=== PATIENT | male | born 1940 | race Caucasian/White ===

== ENCOUNTER 2017-11-06 13:13 | Emergency (ER) | payer MEDICARE, OTHER ==
--- NOTE | 2017-11-06 13:44 | EDM.PDOC ---
ED HPI GENERAL MEDICAL PROBLEM - General Stated Complaint: [id number] BLOOD PRESSURE Time Seen by Provider: 11/06/17 13:39 Source of Information: Reports: Patient History Limitations: Reports: No Limitations - History of Present Illness INITIAL COMMENTS - FREE TEXT/NARRATIVE: This 77 yo male patient reports to the ED due to getting very high blood pressure readings on his home machine. The patient reports he took his blood pressure about 12 times today, but his pressure has gotten higher. The patient reports that he attempted to get into the clinic, but waited for over an hour without being seen. Onset: Today Duration: Constant Location: Reports: Other Quality: Reports: Other Severity: Moderate Improves with: Reports: None Worsens with: Reports: None Associated Symptoms: Reports: No Other Symptoms - Related Data Allergies Allergy/AdvReac Type Severity Reaction Status Date / Time No Known Allergies Allergy Verified 11/06/17 13:19 Home Meds: Home Meds Chlorthalidone 25 mg PO DAILY 01/23/14 [History] Losartan [Cozaar] 100 mg PO DAILY 01/23/14 [History] Metoprolol Succinate [Toprol XL] 50 mg PO DAILY 01/23/14 [History] Nitroglycerin [Nitrostat] 0.4 mg SL ASDIRECTED PRN 01/23/14 [History] Potassium Chloride [Klor-Con M20] 20 meq PO BID 01/23/14 [History] amLODIPine [Norvasc] 5 mg PO BID 01/23/14 [History] Albuterol [Proventil] 0.5 ml INH Q4HR PRN 11/06/17 [History] Clopidogrel [Plavix] 75 mg PO DAILY 11/06/17 [History] Fluticasone/Salmeterol [Advair 250-50 Diskus] 1 puff INH BID 11/06/17 [History] Goserelin [Zoladex] 10.8 mg SUBCUT .[id number] 11/06/17 [History] Isosorbide Mononitrate [Imdur] 60 mg PO DAILY 11/06/17 [History] ED ROS GENERAL - Review of Systems Review Of Systems: ROS reveals no pertinent complaints other than HPI. ED EXAM, GENERAL - Physical Exam Exam: See Below Exam Limited By: No Limitations General Appearance: Alert, WD/WN, Anxious, Moderate Distress Eye Exam: Bilateral Eye: EOMI, Normal Inspection, PERRL Ears: Normal External Exam, Normal Canal, Hearing Grossly Normal, Normal TMs Nose: Normal Inspection Throat/Mouth: Normal Inspection, Normal Lips, Normal Teeth Head: Atraumatic, Normocephalic Neck: Normal Inspection, Full Range of Motion Respiratory/Chest: No Respiratory Distress, Lungs Clear, Normal Breath Sounds Cardiovascular: Normal Peripheral Pulses, Regular Rate, Rhythm, No Edema, No Gallop, No JVD, No Murmur, No Rub GI/Abdominal: Normal Bowel Sounds, Soft, Non-Tender, No Organomegaly, No Distention, No Abnormal Bruit, No Mass (Male) Exam: Deferred Rectal (Males) Exam: Deferred Back Exam: Normal Inspection Extremities: Normal Inspection, Normal Range of Motion, Non-Tender, Normal Capillary Refill, No Pedal Edema Neurological: Alert, Oriented, CN II-XII Intact, Normal Cognition, Normal Gait, Normal Reflexes, No Motor/Sensory Deficits Psychiatric: Normal Affect, Normal Mood Skin Exam: Warm, Dry, Intact, Normal Color, No Rash Lymphatic: No Adenopathy Course - Vital Signs Last Recorded V/S: Last Vital Signs Temp 36.4 C 11/06/17 13:37 Pulse 66 11/06/17 13:37 Resp 18 11/06/17 13:37 BP 152/106 H 11/06/17 13:37 Pulse Ox 99 11/06/17 13:37 Departure - Departure Time of Disposition: 13:40 Disposition: Home, Self-Care 01 Condition: Good Clinical Impression: High blood pressure Qualifiers: Hypertension type: unspecified Qualified Code(s): I10 - Essential (primary) hypertension - Discharge Information *PRESCRIPTION DRUG MONITORING PROGRAM REVIEWED*: Not Applicable *COPY OF PRESCRIPTION DRUG MONITORING REPORT IN PATIENT ZACH: Not Applicable Instructions: Hypertension Forms: ED Department Discharge Care Plan Goals: The patient was advised of the examination and blood pressure results. The patient was encouraged to follow-up with his primary care facility for continued evaluation and management. If the patient has any additional symptoms or concerns, the patient should visit his primary care facility or return to the emergency department.
== END 2017-11-06 13:54 | disposition home or self-care (01) ==
LOC: DL.ED 13:13
DX: I10 Essential (primary) hypertension (principal); Z79.899 Other long term (current) drug therapy
CPT/HCPCS: 99283

== ENCOUNTER 2017-11-13 12:51 | Emergency (ER) | payer MEDICARE, OTHER ==
[2017-11-13 13:55] LABS: ANION GAP 13.5; CHLORIDE,CL 105 mmol/L (101-111); SODIUM,NA 140 mmol/L (135-145)
--- NOTE | 2017-11-13 13:58 | CR ---
Clinical history: 77-year-old male chest pain (history prostate cancer). Interpretation: Apparent old ununited mid diaphyseal fracture right clavicle. External monitoring coordinator leads. Normal cardiac silhouette and ectatic left-sided aorta. No cephalization vascular flow, alveolar edema or dependent pleural effusion. No lung mass, hilar lymphadenopathy or focal lobar pneumonia. No atelectasis/collapse. No pneumothorax or free subdiaphragmatic air. CONCLUSION: No acute cardiopulmonary abnormality.
--- NOTE | 2017-11-13 14:54 | EDM.PDOC ---
ED HPI GENERAL MEDICAL PROBLEM - General Chief Complaint: Cardiovascular Problem Stated Complaint: [id number] HIGH BLOOD PRESSURE Time Seen by Provider: 11/13/17 14:30 Source of Information: Reports: Patient History Limitations: Reports: No Limitations - History of Present Illness INITIAL COMMENTS - FREE TEXT/NARRATIVE: This 77 yo male patient reports to the ED with elevated blood pressures (taken at home). The patient reports his blood pressures at home were in the 200's over 100's. The patient reports that he stopped at the ambulance service prior to coming to the ED. The patient reports his blood pressure at the ambulance garage was in the 160's/90's. The patient was seen with similar symptoms about 1 week ago. The patient has not had a follow-up with his primary care facility at this time. Onset: Today Duration: Constant Location: Reports: Other Quality: Reports: Other Severity: Moderate Improves with: Reports: None Worsens with: Reports: None - Related Data Allergies Allergy/AdvReac Type Severity Reaction Status Date / Time No Known Allergies Allergy Verified 11/13/17 13:54 Home Meds: Home Meds Chlorthalidone 12.5 mg PO DAILY 01/23/14 [History] Losartan [Cozaar] 100 mg PO DAILY 01/23/14 [History] Metoprolol Succinate [Toprol XL] 50 mg PO DAILY 01/23/14 [History] Nitroglycerin [Nitrostat] 0.4 mg SL .Q5MIN PRN 01/23/14 [History] Potassium Chloride [Klor-Con M20] 20 meq PO BID 01/23/14 [History] amLODIPine [Norvasc] 5 mg PO BID 01/23/14 [History] Albuterol [Proventil] 0.5 ml INH Q4HR PRN 11/06/17 [History] Clopidogrel [Plavix] 75 mg PO DAILY 11/06/17 [History] Fluticasone/Salmeterol [Advair 250-50 Diskus] 1 puff INH BID 11/06/17 [History] Goserelin [Zoladex] 10.8 mg SUBCUT .[id number] 11/06/17 [History] Isosorbide Mononitrate [Imdur] 60 mg PO DAILY 11/06/17 [History] Past Medical History Cardiovascular History: Reports: Hypertension, Stents Respiratory History: Reports: COPD - Infectious Disease History Infectious Disease History: Reports: Chicken Pox, Measles, Mumps - Past Surgical History HEENT Surgical History: Reports: Adenoidectomy, Tonsillectomy Musculoskeletal Surgical History: Reports: Other (See Below) Other Musculoskeletal Surgeries/Procedures:: fx collarbone Social & Family History - Family History Family Medical History: Noncontributory - Caffeine Use Caffeine Use: Reports: Coffee ED ROS GENERAL - Review of Systems Review Of Systems: ROS reveals no pertinent complaints other than HPI. ED EXAM, GENERAL - Physical Exam Exam: See Below Exam Limited By: No Limitations General Appearance: Alert, WD/WN, Mild Distress Eye Exam: Bilateral Eye: EOMI, Normal Inspection, PERRL Ears: Normal External Exam, Normal Canal, Hearing Grossly Normal, Normal TMs Nose: Normal Inspection, Normal Mucosa, No Blood Throat/Mouth: Normal Inspection, Normal Lips, Normal Teeth, Normal Gums, Normal Oropharynx, Normal Voice, No Airway Compromise Head: Atraumatic, Normocephalic Neck: Normal Inspection, Supple, Non-Tender, Full Range of Motion Respiratory/Chest: No Respiratory Distress, Lungs Clear, Normal Breath Sounds, No Accessory Muscle Use, Chest Non-Tender Cardiovascular: Normal Peripheral Pulses, Regular Rate, Rhythm, No Edema, No Gallop, No JVD, No Murmur, No Rub GI/Abdominal: Normal Bowel Sounds, Soft, Non-Tender, No Organomegaly, No Distention, No Abnormal Bruit, No Mass (Male) Exam: Deferred Rectal (Males) Exam: Deferred Back Exam: Normal Inspection, Full Range of Motion, NT Extremities: Normal Inspection, Normal Range of Motion, Non-Tender, Normal Capillary Refill, No Pedal Edema Neurological: Alert, Oriented, CN II-XII Intact, Normal Cognition, Normal Gait, Normal Reflexes, No Motor/Sensory Deficits Psychiatric: Anxious Skin Exam: Warm, Dry, Intact, Normal Color, No Rash Lymphatic: No Adenopathy Course - Vital Signs Last Recorded V/S: Last Vital Signs Temp 36.4 C 11/13/17 12:55 Pulse 74 11/13/17 12:55 Resp 14 11/13/17 12:55 BP 160/90 H 11/13/17 12:55 Pulse Ox 98 11/13/17 12:55 - Orders/Labs/Meds Orders: Active Orders 24 hr Category Date Time Status EKG Documentation Completion [RC] STAT Care 11/13/17 13:16 Active Labs: Laboratory Tests 11/13/17 11/13/17 Range/Units 13:24 13:24 WBC 7.1 (5.0-10.0) 10^3/uL RBC 4.85 (4.6-6.2) 10^6/uL Hgb 14.4 (14.0-18.0) g/dL Hct 40.0 (40.0-54.0) % MCV 82.5 (80-100) fL MCH 29.7 (27.0-34.0) pg MCHC 36.0 H (33.0-35.0) g/dL Plt Count 76 L (150-450) 10^3/uL Neut % (Auto) 68.5 (42.2-75.2) % Lymph % (Auto) 22.6 (20.5-50.1) % Mcdonald % (Auto) 7.5 (2-8) % Eos % (Auto) 1.1 (1.0-3.0) % Baso % (Auto) 0.3 (0.0-1.0) % Sodium 140 (135-145) mmol/L Potassium 3.5 L (3.6-5.0) mmol/L Chloride 105 (101-111) mmol/L Carbon Dioxide 25.0 (21.0-31.0) mmol/L Anion Gap 13.5 BUN 20 H (7-18) mg/dL Creatinine 1.0 (0.6-1.3) mg/dL Est Cr Clr Drug Dosing TNP Estimated GFR (MDRD) > 60 BUN/Creatinine Ratio 20.00 Glucose 132 H (74-105) mg/dL Calcium 9.1 (8.4-10.2) mg/dl Total Bilirubin 0.9 (0.2-1.0) mg/dL AST 34 (10-42) IU/L ALT 45 (10-60) IU/L Alkaline Phosphatase 50 (42-121) IU/L Troponin I < 0.02 (0.00-0.02) ng/ml Total Protein 6.4 L (6.7-8.2) g/dl Albumin 4.4 (3.2-5.5) g/dl Globulin 2.0 Albumin/Globulin Ratio 2.20 Departure - Departure Time of Disposition: 14:51 Disposition: Home, Self-Care 01 Condition: Fair Clinical Impression: Hypertension Qualifiers: Hypertension type: unspecified Qualified Code(s): I10 - Essential (primary) hypertension Instructions: Hypertension, [id number] Forms: ED Department Discharge Care Plan Goals: The patient was advised of the examination, lab, EKG and x-ray results during the visit. The patient was encouraged to continue to take his medications as prescribed. The patient should follow-up with his primary care facility for continued evaluation and management. If the patient has any additional symptoms or concerns, the patient should visit his primary care facility or return to the emergency department. - My Orders Last 24 Hours: My Active Orders 11/13/17 13:16 EKG Documentation Completion [RC] STAT - Assessment/Plan Last 24 Hours: My Active Orders 11/13/17 13:16 EKG Documentation Completion [RC] STAT
== END 2017-11-13 15:15 | disposition home or self-care (01) ==
LOC: DL.ED 12:51
DX: I10 Essential (primary) hypertension (principal); J44.9 Chronic obstructive pulmonary disease, unspecified; Z79.899 Other long term (current) drug therapy
CPT/HCPCS: 36415; 71045; 80053; 84484; 85025; 93005; 93010; 99284; 99285

== ENCOUNTER 2018-05-22 11:41 | Emergency (ER) | payer MEDICARE, OTHER ==
[2018-05-22] MEDS: Sodium Chloride 0.9% 10 ML Syringe FLUSH PRN (12:16)
[2018-05-22] MEDS: Lactated Ringers 1,000 ML IV ONE ×2 (12:23→14:49)
[2018-05-22 12:39] LABS: ANION GAP 13.3; CHLORIDE,CL 103 mmol/L (101-111); SODIUM,NA 133 mmol/L (135-145)
--- NOTE | 2018-05-22 13:30 | EDM.PDOC ---
ED HPI GENERAL MEDICAL PROBLEM - General Chief Complaint: Gastrointestinal Problem Stated Complaint: MARCIN STORY Time Seen by Provider: 05/22/18 11:55 Source of Information: Reports: Patient History Limitations: Reports: No Limitations - History of Present Illness INITIAL COMMENTS - FREE TEXT/NARRATIVE: The patient comes emergency department today with complaints of diarrhea. He reports since May [address] scan of his abdomen evaluating concerns for cancer he has had diarrhea ever since. He has not been evaluated for this. The diarrhea keeps getting worse. Over the past couple of days he's developed some suprapubic periumbilical and medial right lower quadrant pain. He has had a subjective fever and chills. He has also vomited a couple times over the past couple of days. He feels that he is dehydrated. He has not been on any antibiotics currently or previously to the development of his diarrhea. No one else has been ill and he has not been exposed to anyone sick. He has not been traveling outside of his normal areas of travel. He does not work with any livestock or on a farm. Generalized Pain Score (Numeric/FACES): 6 - Related Data Allergies Allergy/AdvReac Type Severity Reaction Status Date / Time No Known Allergies Allergy Verified 05/22/18 11:56 Home Meds: Home Meds Chlorthalidone 25 mg PO DAILY 01/23/14 [History] Losartan [Cozaar] 100 mg PO DAILY 01/23/14 [History] Metoprolol Succinate [Toprol XL] 50 mg PO DAILY 01/23/14 [History] Nitroglycerin [Nitrostat] 0.4 mg SL .Q5MIN PRN 01/23/14 [History] Potassium Chloride [Klor-Con M20] 20 meq PO BID 01/23/14 [History] amLODIPine [Norvasc] 5 mg PO BID 01/23/14 [History] Albuterol [Proventil] 0.5 ml INH Q4HR PRN 11/06/17 [History] Clopidogrel [Plavix] 75 mg PO DAILY 11/06/17 [History] Fluticasone/Salmeterol [Advair 250-50 Diskus] 1 puff INH BID 11/06/17 [History] Goserelin [Zoladex] 10.8 mg SUBCUT .[id number] 11/06/17 [History] Aspirin [Adult Low Dose Aspirin EC] 81 mg PO DAILY 05/22/18 [History] Past Medical History Cardiovascular History: Reports: Hypertension, Stents Respiratory History: Reports: COPD Gastrointestinal History: Reports: Other (See Below) (Diverticulosis) - Infectious Disease History Infectious Disease History: Reports: Chicken Pox, Measles, Mumps - Past Surgical History HEENT Surgical History: Reports: Adenoidectomy, Tonsillectomy Musculoskeletal Surgical History: Reports: Other (See Below) Other Musculoskeletal Surgeries/Procedures:: fx collarbone Social & Family History - Family History Family Medical History: Noncontributory - Caffeine Use Caffeine Use: Reports: Coffee ED ROS GENERAL - Review of Systems Review Of Systems: ROS reveals no pertinent complaints other than HPI. ED EXAM, GI/ABD - Physical Exam Exam: See Below Exam Limited By: No Limitations General Appearance: Alert, WD/WN, No Apparent Distress Ears: Normal External Exam, Normal TMs Nose: Normal Inspection Throat/Mouth: Normal Lips, Normal Teeth, Normal Oropharynx. No: Normal Inspection (Oral mucosa is quite dry) Head: Atraumatic, Normocephalic Neck: Normal Inspection, Supple, Non-Tender Respiratory/Chest: No Respiratory Distress, Lungs Clear, Normal Breath Sounds, No Accessory Muscle Use Cardiovascular: Normal Peripheral Pulses, Regular Rate, Rhythm GI/Abdominal Exam: Normal Bowel Sounds (Rounded obese abdomen), Soft, Non- Tender (He does have some very mild tenderness to palpation in the medial right lower quadrant suprapubic region. No guarding or rebound tenderness.) Back Exam: Normal Inspection, Full Range of Motion Extremities: Normal Inspection, Normal Range of Motion, Non-Tender, Normal Capillary Refill Neurological: Alert, Oriented, Normal Cognition, Normal Gait, No Motor/Sensory Deficits Psychiatric: Normal Affect, Normal Mood Skin Exam: Warm, Dry, Intact, Normal Color, No Rash Lymphatic: No Adenopathy Course - Vital Signs Last Recorded V/S: Last Vital Signs Temp 37.2 C 05/22/18 11:50 Pulse 79 05/22/18 11:50 Resp 16 05/22/18 11:50 BP 145/98 H 05/22/18 11:50 Pulse Ox 100 05/22/18 11:50 - Orders/Labs/Meds Orders: Active Orders 24 hr Category Date Time Status Peripheral IV Care [RC] . DIRECTED Care 05/22/18 12:15 Active C DIFFICILE TOXIN BY PCR [MREF] Stat Lab 05/22/18 12:08 Received CULTURE BLOOD [BC] Stat Lab 05/22/18 12:07 Received CULTURE STOOL [RM] Stat Lab 05/22/18 12:08 Received OVA & PARASITES BY IMMUNOASSAY [MREF] Stat Lab 05/22/18 12:08 Received SHIGA TOXIN 1 & 2 [MREF] Stat Lab 05/22/18 12:08 Received Peripheral IV Insertion Adult [OM.PC] Stat Oth 05/22/18 12:14 Ordered Labs: Laboratory Tests 05/22/18 05/22/18 05/22/18 Range/Units 12:07 12:07 12:07 WBC 12.3 H (5.0-10.0) 10^3/uL RBC 5.49 (4.6-6.2) 10^6/uL Hgb 16.1 (14.0-18.0) g/dL Hct 44.4 (40.0-54.0) % MCV 80.9 (80-100) fL MCH 29.3 (27.0-34.0) pg MCHC 36.3 H (33.0-35.0) g/dL Plt Count 134 L (150-450) 10^3/uL Neut % (Auto) 76.1 H (42.2-75.2) % Lymph % (Auto) 14.0 L (20.5-50.1) % Cuming % (Auto) 9.4 H (2-8) % Eos % (Auto) 0.3 L (1.0-3.0) % Baso % (Auto) 0.2 (0.0-1.0) % Add Manual Diff Yes Neutrophils % (Manual) 74 (42-75) % Band Neutrophils % 3 % Lymphocytes % (Manual) 18 L (20-50) % Monocytes % (Manual) 5 (2-8) % Sodium 133 L (135-145) mmol/L Potassium 3.3 L (3.6-5.0) mmol/L Chloride 103 (101-111) mmol/L Carbon Dioxide 20.0 L (21.0-31.0) mmol/L Anion Gap 13.3 BUN 32 H (7-18) mg/dL Creatinine 1.1 (0.6-1.3) mg/dL Est Cr Clr Drug Dosing 53.55 mL/min Estimated GFR (MDRD) > 60 BUN/Creatinine Ratio 29.09 Glucose 134 H (74-105) mg/dL Lactic Acid 2.0 (0.5-2.2) mmol/L Calcium 8.6 (8.4-10.2) mg/dl Magnesium (1.8-2.5) mg/dL Total Bilirubin 1.5 H (0.2-1.0) mg/dL AST 24 (10-42) IU/L ALT 35 (10-60) IU/L Alkaline Phosphatase 44 (42-121) IU/L C-Reactive Protein (0.0-1.3) mg/dL Total Protein 6.6 L (6.7-8.2) g/dl Albumin 4.2 (3.2-5.5) g/dl Globulin 2.4 Albumin/Globulin Ratio 1.75 Urine Color (YELLOW) Urine Appearance (CLEAR) Urine pH (5.0-9.0) Ur Specific [place] (1.005-1.030) Urine Protein (NEGATIVE) Urine Glucose (UA) (NEGATIVE) Urine Ketones (NEGATIVE) Urine Occult Blood (NEGATIVE) Urine Nitrite (NEGATIVE) Urine Bilirubin (NEGATIVE) Urine Urobilinogen (0.2-1.0) mg/dL Ur Leukocyte Esterase (NEGATIVE) Urine RBC /HPF Urine WBC (0-5/HPF) /HPF Ur Epithelial Cells /HPF Urine Bacteria (0-FEW/HPF) /HPF Urine Mucus /LPF 05/22/18 05/22/18 05/22/18 Range/Units 12:07 12:07 15:36 WBC (5.0-10.0) 10^3/uL RBC (4.6-6.2) 10^6/uL Hgb (14.0-18.0) g/dL Hct (40.0-54.0) % MCV (80-100) fL MCH (27.0-34.0) pg MCHC (33.0-35.0) g/dL Plt Count (150-450) 10^3/uL Neut % (Auto) (42.2-75.2) % Lymph % (Auto) (20.5-50.1) % Cuming % (Auto) (2-8) % Eos % (Auto) (1.0-3.0) % Baso % (Auto) (0.0-1.0) % Add Manual Diff Neutrophils % (Manual) (42-75) % Band Neutrophils % % Lymphocytes % (Manual) (20-50) % Monocytes % (Manual) (2-8) % Sodium (135-145) mmol/L Potassium (3.6-5.0) mmol/L Chloride (101-111) mmol/L Carbon Dioxide (21.0-31.0) mmol/L Anion Gap BUN (7-18) mg/dL Creatinine (0.6-1.3) mg/dL Est Cr Clr Drug Dosing mL/min Estimated GFR (MDRD) BUN/Creatinine Ratio Glucose (74-105) mg/dL Lactic Acid (0.5-2.2) mmol/L Calcium (8.4-10.2) mg/dl Magnesium 2.1 (1.8-2.5) mg/dL Total Bilirubin (0.2-1.0) mg/dL AST (10-42) IU/L ALT (10-60) IU/L Alkaline Phosphatase (42-121) IU/L C-Reactive Protein 0.6 (0.0-1.3) mg/dL Total Protein (6.7-8.2) g/dl Albumin (3.2-5.5) g/dl Globulin Albumin/Globulin Ratio Urine Color Yellow (YELLOW) Urine Appearance Clear (CLEAR) Urine pH 5.0 (5.0-9.0) Ur Specific [place] <= 1.005 (1.005-1.030) Urine Protein Negative (NEGATIVE) Urine Glucose (UA) Negative (NEGATIVE) Urine Ketones Negative (NEGATIVE) Urine Occult Blood Negative (NEGATIVE) Urine Nitrite Negative (NEGATIVE) Urine Bilirubin Negative (NEGATIVE) Urine Urobilinogen 0.2 (0.2-1.0) mg/dL Ur Leukocyte Esterase Negative (NEGATIVE) Urine RBC Not seen /HPF Urine WBC 0-5 (0-5/HPF) /HPF Ur Epithelial Cells Rare /HPF Urine Bacteria Rare (0-FEW/HPF) /HPF Urine Mucus Rare /LPF Meds: Medications Discontinued Medications Generic Name Dose Route Start Last Admin Trade Name Freq PRN Reason Stop Dose Admin Ciprofloxacin 500 mg 05/22/18 14:41 05/22/18 14:49 Ciprofloxacin Hcl PO 05/22/18 14:42 500 mg ONETIME ONE Administration Lactated Ringer's 1,000 mls @ 1,000 mls/hr 05/22/18 12:15 05/22/18 12:23 Ringers, Lactated IV 05/22/18 13:14 1,000 mls/hr .BOLUS ONE Administration Ciprofloxacin/Dextrose 400 mg/ 200 mls @ 200 mls/hr 05/22/18 14:34 05/22/18 15:46 Premix IV 05/22/18 15:33 Not Given ONETIME ONE Lactated Ringer's 1,000 mls @ 400 mls/hr 05/22/18 14:40 05/22/18 14:49 Ringers, Lactated IV 05/22/18 17:09 400 mls/hr .BOLUS ONE Administration Iopamidol 100 ml 05/22/18 13:48 05/22/18 13:51 Isovue-300 (61%) IVPUSH 05/22/18 13:49 97 ml ONETIME ONE Administration Potassium Chloride 20 meq 05/22/18 12:55 05/22/18 13:56 Potassium Chloride Solution PO 05/22/18 12:56 20 meq NOW STA Administration Sodium Chloride 10 ml 05/22/18 12:14 05/22/18 12:16 Saline Flush FLUSH 10 ml ASDIRECTED PRN Administration Keep Vein Open - Radiology Interpretation Free Text/Narrative:: CT abdomen and pelvis radiology no definite evidence of acute abdominal or pelvic pathology. Diverticulosis without any evidence of diverticulitis. No appendicitis. - Re-Assessments/Exams Free Text/Narrative Re-Assessment/Exam: 05/22/18 13:29 IV of LR 500 bolus and 200 mils an hour. Stool culture obtained and sent. Patient did have multiple bouts of diarrhea while in the emergency department. 05/22/18 15:22 Stool cultures are pending. Although with the rather extended period of diarrhea we will start him on Cipro. He was continued IV fluid hydration in the emergency department until he was able to urinate. He did not have any nausea or vomiting while in the emergency department. I relayed the rather normal findings of his CT abdomen and pelvis. He does have diverticulosis without any evidence of diverticulitis. We will give him some potassium now and some supplementation over the next couple of days. Cipro for the next 5 days. We will follow up with cultures for him following his stool culture results. Keep his appointment for the scan of his abdomen as guided by his oncologist on Sunday. He is comfortable with this plan his questions are answered. Departure - Departure Time of Disposition: 15:13 Disposition: Home, Self-Care 01 Clinical Impression: Diarrhea, Abdominal pain, Dehydration, Hypokalemia Diverticulosis Qualifiers: Diverticulosis site: diverticulosis of large intestine Diverticulosis bleeding : diverticulosis without bleeding Qualified Code(s): K57.30 - Diverticulosis of large intestine without perforation or abscess without bleeding - Discharge Information Instructions: Dehydration, Adult, [id number], Abdominal Pain, Adult, Easy-to- Read, Rehydration, Adult, Diarrhea, Adult, [id number] Forms: ED Department Discharge Additional Instructions: Increase fluids over the next couple of days especially Gatorade and/or Powerade. Make sure and eat a banana a day. No dairy products until 48 hours of resolution of diarrhea and abdominal pain. Cipro 1 tablet twice daily for the next 5 days. RX given to the patient. K-Dur potassium tablets once daily for the next 5 days. Start today. RX given to the patient. Recheck potassium in the clinic on sunday. Return to the ED if new or worsening symptoms. Follow up with primary care on sunday for recheck. - My Orders Last 24 Hours: My Active Orders 05/22/18 12:07 CULTURE BLOOD [BC] Stat 05/22/18 12:08 C DIFFICILE TOXIN BY PCR [MREF] Stat CULTURE STOOL [RM] Stat OVA & PARASITES BY IMMUNOASSAY [MREF] Stat SHIGA TOXIN 1 & 2 [MREF] Stat 05/22/18 12:14 Peripheral IV Insertion Adult [OM.PC] Stat 05/22/18 12:15 Peripheral IV Care [RC] . DIRECTED - Assessment/Plan Last 24 Hours: My Active Orders 05/22/18 12:07 CULTURE BLOOD [BC] Stat 05/22/18 12:08 C DIFFICILE TOXIN BY PCR [MREF] Stat CULTURE STOOL [RM] Stat OVA & PARASITES BY IMMUNOASSAY [MREF] Stat SHIGA TOXIN 1 & 2 [MREF] Stat 05/22/18 12:14 Peripheral IV Insertion Adult [OM.PC] Stat 05/22/18 12:15 Peripheral IV Care [RC] . DIRECTED Assessment:: Diarrhea for almost 2 weeks Dehydration hypokalemia Abd pain known origin. Diverticulosis without evidence of diverticulitis. Plan: Increase fluids over the next couple of days especially Gatorade and/or Powerade. Make sure and eat a banana a day. No dairy products until 48 hours of resolution of diarrhea and abdominal pain. Cipro 1 tablet twice daily for the next 5 days. RX given to the patient. K-Dur potassium tablets once daily for the next 5 days. Start today. RX given to the patient. Recheck potassium in the clinic on sunday. Return to the ED if new or worsening symptoms. Follow up with primary care on sunday for recheck.
[2018-05-22] MEDS: Iopamidol 612 MG/ML 100 ML Bottle IVPUSH ONE (13:51)
[2018-05-22] MEDS: Potassium Chloride 10% 20 MEQ/15 ML Soln 15 ML UD Cup PO STA (13:56)
[2018-05-22] MEDS: Ciprofloxacin 500 MG Tab PO ONE (14:49)
[2018-05-22] MEDS: Ciprofloxacin in D5W 400 MG in Premix Bag 1 BAG IV ONE ×2 (15:46)
== END 2018-05-22 16:04 | disposition home or self-care (01) ==
LOC: DL.ED 11:41
DX: K57.30 Diverticulosis of large intestine without perforation or abscess without bleeding (principal); E87.6 Hypokalemia; E86.0 Dehydration; I10 Essential (primary) hypertension; J44.9 Chronic obstructive pulmonary disease, unspecified; Z79.899 Other long term (current) drug therapy
CPT/HCPCS: 36415; 74177; 80053; 81001; 83605; 83735; 85025; 86140; 87040; 87045; 87328; 87329; 87493; 87899; 96360; 96361; 99284; A9270; J7120; Q9967; 87046

== ENCOUNTER → 2018-06-27 | Outpatient (CLI) | payer MEDICARE, OTHER ==
[2018-06-27 09:29] LABS: ANION GAP 15.5; CHLORIDE,CL 103 mmol/L (101-111); SODIUM,NA 139 mmol/L (135-145)
== END ==
LOC: DL.LAB 08:42
PROVIDERS: ATTEND Internal Medicine Hematology & Oncology
DX: C61 Malignant neoplasm of prostate (principal); D69.6 Thrombocytopenia, unspecified
CPT/HCPCS: 36415; 80053; 82728; 83540; 83550; 85025

== ENCOUNTER 2018-08-13 08:08 | Emergency (ER) | payer MEDICARE, OTHER ==
--- NOTE | 2018-08-13 08:51 | CR ---
Clinical history: 77-year-old male with cough and shortness of breath. Interpretation: Satisfactory interval healing mid right clavicular fracture demonstrated on 05 November 2017. Normal cardiac silhouette without cephalization of vascular flow, alveolar edema or dependent pleural effusion. No new lung mass, hilar lymphadenopathy or focal lobar pneumonia. No atelectasis/collapse. 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 No pneumothorax.. CONCLUSION: No acute new cardiopulmonary abnormality identified in the interval since 13 November 2017.
--- NOTE | 2018-08-13 08:59 | EDM.PDOC ---
ED HPI GENERAL MEDICAL PROBLEM - General Chief Complaint: General Stated Complaint: SICK Time Seen by Provider: 08/13/18 08:40 Source of Information: Reports: Patient, RN, RN Notes Reviewed History Limitations: Reports: No Limitations - History of Present Illness INITIAL COMMENTS - FREE TEXT/NARRATIVE: Pt to ER with c/o cough for the past week, coughing up clear sputum. 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 Patient admits to fever and chills last night. Denies N/V/D. States he was unable to see his PCP and knows he needs meds or he will get much worse. Admits to SOB at times, denies chest pain. 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) - Related Data Allergies Allergy/AdvReac Type Severity Reaction Status Date / Time No Known Allergies Allergy Verified 08/13/18 08:22 Home Meds: Home Meds Chlorthalidone 25 mg PO DAILY 01/23/14 [History] Losartan [Cozaar] 100 mg PO DAILY 01/23/14 [History] Metoprolol Succinate [Toprol XL] 50 mg PO DAILY 01/23/14 [History] Nitroglycerin [Nitrostat] 0.4 mg SL .Q5MIN PRN 01/23/14 [History] Potassium Chloride [Klor-Con M20] 20 meq PO BID 01/23/14 [History] amLODIPine [Norvasc] 5 mg PO BID 01/23/14 [History] Albuterol [Proventil] 0.5 ml INH Q4HR PRN 11/06/17 [History] Clopidogrel [Plavix] 75 mg PO DAILY 11/06/17 [History] Fluticasone/Salmeterol [Advair 250-50 Diskus] 1 puff INH BID 11/06/17 [History] Goserelin [Zoladex] 10.8 mg SUBCUT .[id number] 11/06/17 [History] Aspirin [Adult Low Dose Aspirin EC] 81 mg PO DAILY 05/22/18 [History] Past Medical History Cardiovascular History: Reports: Hypertension, Stents Respiratory History: Reports: COPD Gastrointestinal History: Reports: Other (See Below) (Diverticulosis) - Infectious Disease History Infectious Disease History: Reports: Chicken Pox, Measles, Mumps - Past Surgical History HEENT Surgical History: Reports: Adenoidectomy, Tonsillectomy Musculoskeletal Surgical History: Reports: Other (See Below) Other Musculoskeletal Surgeries/Procedures:: fx collarbone Social & Family History - Family History Family Medical History: Noncontributory - Tobacco Use Smoking Status *Q: Never Smoker Second Hand Smoke Exposure: No - Caffeine Use Caffeine Use: Reports: Soda - Recreational Drug Use Recreational Drug Use: No ED ROS GENERAL - Review of Systems Review Of Systems: ROS reveals no pertinent complaints other than HPI. ED EXAM, GENERAL - Physical Exam Exam: See Below Exam Limited By: No Limitations General Appearance: Alert, WD/WN, No Apparent Distress Eye Exam: Bilateral Eye: EOMI, Normal Inspection Ears: Normal External Exam, Hearing Grossly Normal Nose: Normal Inspection Throat/Mouth: Normal Inspection, Normal Voice, No Airway Compromise Head: Atraumatic, Normocephalic Neck: Normal Inspection, Supple, Non-Tender, Full Range of Motion Respiratory/Chest: No Respiratory Distress, No Accessory Muscle Use, Chest Non- Tender, Decreased Breath Sounds, Crackles (bases bilaterally) Cardiovascular: Normal Peripheral Pulses, Regular Rate, Rhythm, No Edema, No Gallop, No JVD, No Murmur, No Rub Peripheral Pulses: 2+: Radial (L), Radial (R) GI/Abdominal: Normal Bowel Sounds, Soft, Non-Tender, No Organomegaly, No Distention, No Abnormal Bruit, No Mass, Pelvis Stable (Male) Exam: Deferred Rectal (Males) Exam: Deferred Back Exam: Normal Inspection, Full Range of Motion, NT Extremities: Normal Inspection, Normal Range of Motion, Non-Tender, Normal Capillary Refill, No Pedal Edema Neurological: Alert, Oriented, CN II-XII Intact, Normal Cognition, Normal Gait, Normal Reflexes, No Motor/Sensory Deficits Psychiatric: Normal Affect, Normal Mood Skin Exam: Warm, Dry, Intact, Normal Color, No Rash Lymphatic: No Adenopathy Course - Vital Signs Last Recorded V/S: Last Vital Signs Temp 97.4 F 08/13/18 08:27 Pulse 78 08/13/18 08:27 Resp 16 08/13/18 08:27 BP 151/76 H 08/13/18 08:27 Pulse Ox 98 08/13/18 08:27 - Radiology Interpretation Free Text/Narrative:: Chest xray: No acuted new cardiopulmonary abnormality identified in the interval since 13 Nov 2017. See rad report Departure - Departure Time of Disposition: 08:56 Disposition: Home, Self-Care 01 Condition: Fair Clinical Impression: Cough, Bronchitis - Discharge Information *PRESCRIPTION DRUG MONITORING PROGRAM REVIEWED*: No *COPY OF PRESCRIPTION DRUG MONITORING REPORT IN PATIENT ZACH: No Instructions: Cough, Adult, Vpki-[id number], Upper Respiratory Infection, Adult, [id number] Forms: ED Department Discharge Additional Instructions: May use over the counter Robitussin as directed for cough RX: Prednisone, Azithromycin Drink plenty of water Follow up with your primary care facility
== END 2018-08-13 09:08 | disposition home or self-care (01) ==
LOC: DL.ED 08:08
DX: J40 Bronchitis, not specified as acute or chronic (principal); J44.9 Chronic obstructive pulmonary disease, unspecified; I10 Essential (primary) hypertension; Z79.01 Long term (current) use of anticoagulants; Z79.82 Long term (current) use of aspirin; Z79.899 Other long term (current) drug therapy
CPT/HCPCS: 71046; 99283-25

== ENCOUNTER 2019-05-01 08:56 | Emergency (ER) | payer MEDICARE, OTHER ==
[2019-05-01] MEDS ORDERED: Sodium Chloride 0.9% 10 ML Syringe FLUSH PRN (10:47)
--- NOTE | 2019-05-01 10:56 | EDM.PDOC ---
<Cruzito Li - Last Filed: 05/01/19 11:51> ED HPI GENERAL MEDICAL PROBLEM - General Chief Complaint: General Stated Complaint: SICK FOR 5 DAYS Time Seen by Provider: 05/01/19 10:51 Source of Information: Reports: Patient, RN, RN Notes Reviewed History Limitations: Reports: No Limitations - History of Present Illness INITIAL COMMENTS - FREE TEXT/NARRATIVE: 78 y.o M presents with generalized weakness, fever/chills, productive cough x 5 days. Patient reports that he has been using albuterol nebs @ home, last one this AM 0800 with some relief. Patient reports feeling weaker, no appetite, feels "like crap". Patient reports that he feels dehydrated, last urine this morning and denies problem. Tolerating fluids, denies nausea and vomiting. He felt like he could vomit at home once but tried and couldn't get anything to come up. He reports having one small bowel movement this morning that was hard but nothing in the last 5 days. 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) - Related Data Allergies Allergy/AdvReac Type Severity Reaction Status Date / Time No Known Allergies Allergy Verified 05/01/19 09:15 Home Meds: Home Meds Chlorthalidone 25 mg PO DAILY 01/23/14 [History] Losartan [Cozaar] 100 mg PO DAILY 01/23/14 [History] Metoprolol Succinate [Toprol XL] 50 mg PO BEDTIME 01/23/14 [History] Nitroglycerin [Nitrostat] 0.4 mg SL .Q5MIN PRN 01/23/14 [History] Potassium Chloride [Klor-Con M20] 20 meq PO DAILY 01/23/14 [History] amLODIPine [Norvasc] 5 mg PO BID 01/23/14 [History] Albuterol [Proventil] 0.5 ml INH Q4HR PRN 11/06/17 [History] Fluticasone/Salmeterol [Advair 250-50 Diskus] 1 puff INH BID 11/06/17 [History] Goserelin [Zoladex] 10.8 mg SUBCUT .[id number] 11/06/17 [History] Aspirin [Adult Low Dose Aspirin EC] 162 mg PO DAILY 05/22/18 [History] Past Medical History Cardiovascular History: Reports: Hypertension, Stents Respiratory History: Reports: COPD Gastrointestinal History: Reports: Other (See Below) Endocrine/Metabolic History: Reports: Obesity/BMI 30+ - Infectious Disease History Infectious Disease History: Reports: Chicken Pox, Measles, Mumps - Past Surgical History HEENT Surgical History: Reports: Adenoidectomy, Tonsillectomy GI Surgical History: Reports: Appendectomy, Cholecystectomy Musculoskeletal Surgical History: Reports: Other (See Below) Other Musculoskeletal Surgeries/Procedures:: fx collarbone Social & Family History - Family History Family Medical History: Noncontributory - Tobacco Use Smoking Status *Q: Never Smoker Second Hand Smoke Exposure: No - Caffeine Use Caffeine Use: Reports: None - Recreational Drug Use Recreational Drug Use: No ED ROS GENERAL - Review of Systems Review Of Systems: See Below Constitutional: Reports: Fever, Weakness, Fatigue, Decreased Appetite HEENT: Reports: No Symptoms Respiratory: Reports: Shortness of Breath, Cough, Sputum. Denies: Wheezing Cardiovascular: Reports: No Symptoms Endocrine: Reports: No Symptoms GI/Abdominal: Reports: Constipation, Decreased Appetite, Nausea. Denies: Diarrhea : Reports: No Symptoms Musculoskeletal: Reports: Other (generalized weakness) Skin: Reports: No Symptoms Neurological: Reports: Headache, Weakness. Denies: Confusion, Dizziness, Numbness, Syncope, Tingling, Difficulty Walking Psychiatric: Reports: No Symptoms Hematologic/Lymphatic: Reports: No Symptoms Immunologic: Reports: No Symptoms ED EXAM, GENERAL - Physical Exam Exam: See Below Exam Limited By: No Limitations General Appearance: Alert, WD/WN, Mild Distress Respiratory/Chest: No Respiratory Distress, Lungs Clear, Normal Breath Sounds, No Accessory Muscle Use, Chest Non-Tender Cardiovascular: Normal Peripheral Pulses, Regular Rate, Rhythm, No Edema, No Gallop, No JVD, No Murmur, No Rub GI/Abdominal: Soft, Non-Tender, No Distention, Abnormal Bowel Sounds (hypoactive ). No: Guarding, Rebound, Tender (Male) Exam: Deferred Rectal (Males) Exam: Deferred Extremities: Normal Inspection, Normal Range of Motion, Non-Tender, Normal Capillary Refill, No Pedal Edema Neurological: Alert, Oriented, CN II-XII Intact, Normal Cognition, Normal Gait, Normal Reflexes, No Motor/Sensory Deficits Psychiatric: Normal Affect, Normal Mood Skin Exam: Warm, Dry, Intact, Normal Color, No Rash Course - Vital Signs Last Recorded V/S: Last Vital Signs Temp 98.3 F 05/01/19 08:58 Pulse 85 05/01/19 08:58 Resp 20 05/01/19 08:58 BP 140/93 H 05/01/19 08:58 Pulse Ox 98 05/01/19 08:58 - Orders/Labs/Meds Orders: Active Orders 24 hr Category Date Time Status Peripheral IV Care [RC] . DIRECTED Care 05/01/19 10:48 Active CULTURE STREP A CONFIRMATION [] Stat Lab 05/01/19 09:20 Results STREP SCRN A RAPID W CULT CONF [] Stat Lab 05/01/19 09:20 Results Peripheral IV Insertion Adult [OM.PC] Stat Oth 05/01/19 10:48 Ordered Labs: Laboratory Tests 05/01/19 05/01/19 Range/Units 10:55 10:55 WBC 5.7 (5.0-10.0) 10^3/uL RBC 5.15 (4.6-6.2) 10^6/uL Hgb 15.0 (14.0-18.0) g/dL Hct 40.9 (40.0-54.0) % MCV 79.4 L (80-100) fL MCH 29.1 (27.0-34.0) pg MCHC 36.7 H (33.0-35.0) g/dL Plt Count 84 L (150-450) 10^3/uL Neut % (Auto) 70.8 (42.2-75.2) % Lymph % (Auto) 17.4 L (20.5-50.1) % Vilas % (Auto) 11.2 H (2-8) % Eos % (Auto) 0.4 L (1.0-3.0) % Baso % (Auto) 0.2 (0.0-1.0) % Sodium 135 (135-145) mmol/L Potassium 3.4 L (3.6-5.0) mmol/L Chloride 95 L (101-111) mmol/L Carbon Dioxide 26.0 (21.0-31.0) mmol/L Anion Gap 17.4 BUN 22 H (7-18) mg/dL Creatinine 1.3 (0.6-1.3) mg/dL Est Cr Clr Drug Dosing 44.58 mL/min Estimated GFR (MDRD) 53 BUN/Creatinine Ratio 16.92 Glucose 119 H (74-105) mg/dL Calcium 9.1 (8.4-10.2) mg/dl Total Bilirubin 1.2 H (0.2-1.0) mg/dL AST 31 (10-42) IU/L ALT 35 (10-60) IU/L Alkaline Phosphatase 43 (42-121) IU/L Total Protein 7.0 (6.7-8.2) g/dl Albumin 4.6 (3.2-5.5) g/dl Globulin 2.4 Albumin/Globulin Ratio 1.92 Strep screen: Negative Influenza A: Positive Influenza B: Negative Meds: Medications Discontinued Medications Generic Name Dose Route Start Last Admin Trade Name Freq PRN Reason Stop Dose Admin Sodium Chloride 1,000 mls @ 150 mls/hr 05/01/19 11:37 05/01/19 12:07 Normal Saline IV 05/01/19 18:16 Not Given .BOLUS ONE Sodium Chloride 10 ml 05/01/19 10:47 05/01/19 11:29 Saline Flush FLUSH 10 ml ASDIRECTED PRN Administration Keep Vein Open Departure - Departure Time of Disposition: 12:00 Disposition: Home, Self-Care 01 Condition: Fair Clinical Impression: Influenza A Constipation Qualifiers: Constipation type: unspecified constipation type Qualified Code(s): K59.00 - Constipation, unspecified - Discharge Information *PRESCRIPTION DRUG MONITORING PROGRAM REVIEWED*: Not Applicable *COPY OF PRESCRIPTION DRUG MONITORING REPORT IN PATIENT ZACH: Not Applicable Instructions: Influenza, Adult, Constipation, Adult, [id number] Referrals: PCP,Unobtain [Primary Care Provider] - Forms: ED Department Discharge Additional Instructions: Symptoms of influenza may take up to 10-14 days to resolve. Continue to drink plenty of fluids to stay hydrated and to help with constipation. Take over the counter magnesium citrate or miralax to help with constipation as well. If symptoms worsen or do not resolve, follow-up with primary care provider in clinic. Sepsis Event Note - Evaluation Sepsis Screening Result: No Definite Risk - Focused Exam Vital Signs: Vital Signs Temp Pulse Resp BP Pulse Ox 05/01/19 08:58 98.3 F 85 20 140/93 H 98 Date Exam was Performed: 05/01/19 Time Exam was Performed: 11:51 - My Orders Last 24 Hours: My Active Orders 05/01/19 09:20 CULTURE STREP A CONFIRMATION [RM] Stat STREP SCRN A RAPID W CULT CONF [RM] Stat 05/01/19 10:48 Peripheral IV Care [RC] . DIRECTED Peripheral IV Insertion Adult [OM.PC] Stat - Assessment/Plan Last 24 Hours: My Active Orders 05/01/19 09:20 CULTURE STREP A CONFIRMATION [RM] Stat STREP SCRN A RAPID W CULT CONF [RM] Stat 05/01/19 10:48 Peripheral IV Care [RC] . DIRECTED Peripheral IV Insertion Adult [OM.PC] Stat <Yohana Stephen - Last Filed: 05/01/19 19:20> Course - Re-Assessments/Exams Free Text/Narrative Re-Assessment/Exam: 05/01/19 19:20 I personally performed or re-performed the physical examination and medical decision making. I have verified all student documentation or findings, including history, physical exam and/or medical decision making. Sepsis Event Note - Focused Exam Date Exam was Performed: 05/01/19 Time Exam was Performed: 19:19
[2019-05-01 11:23] LABS: ANION GAP 17.4
[2019-05-01] MEDS ORDERED: Sodium Chloride 0.9% 1,000 ML IV ONE (11:37)
--- NOTE | 2019-05-01 12:26 | CR ---
EXAMINATION: Chest 2V SEX: Male AGE: 78 years CLINICAL HISTORY: 78-year-old male complaining of shortness of breath. ?pneumonia INTERPRETATION: 1. Osteopenia and hypertrophic arthritic changes of the dorsal spine. Ectasia thoracic aorta. Old healed fracture right clavicle. 2. Normal cardiac silhouette without pulmonary vascular congestion, cephalization of vascular flow, alveolar edema or dependent pleural fluid accumulation. 3. No new lung mass or focal lobar pneumonia compared directly back to July exam. 4. Chronic mild bronchitic pattern. No atelectasis/collapse. No pneumothorax. CONCLUSION: No acute new cardiopulmonary abnormality.
== END 2019-05-01 12:12 | disposition home or self-care (01) ==
LOC: DL.ED 08:56
DX: J10.1 Influenza due to other identified influenza virus with other respiratory manifestations (principal); K59.00 Constipation, unspecified; I10 Essential (primary) hypertension; J44.9 Chronic obstructive pulmonary disease, unspecified; Z79.51 Long term (current) use of inhaled steroids; Z79.82 Long term (current) use of aspirin; Z79.899 Other long term (current) drug therapy
CPT/HCPCS: 36415; 71046; 74019; 80053; 85025; 87081; 87430; 87804; 99282; 99285-25

== ENCOUNTER → 2020-05-06 | Day surgery (SDC) | payer MEDICARE, OTHER ==
[~2020-05-06] MED LIST: Lidocaine 1% with EPINEPHrine 1:100,000 20 ML MDV INJECT ONE; Lidocaine 1% with EPINEPHrine 1:100,000 20 ML MDV ONE; Midazolam 1 MG/ML 2 ML SDV IV ONE; Ondansetron 4 MG/2 ML SDV IV ONE; Propofol 200 MG/20 ML SDV IV ONE; fentaNYL 100 MCG/2 ML SDV IV ONE
[2020-05-06] MEDS: Lactated Ringers 1,000 ML IV SCH ×2 (07:52→08:08)
--- NOTE | 2020-05-06 13:56 | OR ---
DATE: 05/06/2020 PRIMARY CARE PHYSICIAN: LIVIER Gilbert PREOPERATIVE DIAGNOSIS: Rectal tenderness and mass. POSTOPERATIVE DIAGNOSIS: Rectal tenderness and mass with internal hemorrhoids and external skin excoriations. PROCEDURE: Exam under anesthesia. ANESTHESIA: MAC. SPECIMEN: None. OPERATIVE FINDINGS: The patient has small to moderate size internal hemorrhoids and he has multiple skin excoriations both anteriorly and posterior in the midline. I think this mostly represents just chronic perineal irritation. It could represent his overzealous effect to clean this area that he has roughed up the skin. I do not find any evidence of fistulas or masses. He has normal rectal tone. Internal hemorrhoids and external skin excoriations. INDICATION FOR PROCEDURE: This 79-year-old male complains of rectal pain and "passages of stones." RECOMMENDATION: I do not have any surgical therapy for him. His hemorrhoids do not even need banding. They are not bleeding and there is no significant mass. I do not know what the stones are that he complains about that he passes other than would represent just small hard balls of stool. I do not have any surgical options. DESCRIPTION OF PROCEDURE: After adequate preparation, examination of the external skin shows skin erosions in the midline, both posteriorly and anteriorly to the anal opening. He does not have any masses or subcutaneous lesions that I can palpate externally. By digital examination, this is also normal. He has good rectal tone. Examination with the anoscope shows internal hemorrhoids. I cannot feel any kind of mass that he complains about that he can feel. The procedure was ended. [facility] /[id number]
--- NOTE | 2020-05-11 21:28 | EKG ---
05/06/2020 - NADYA VALENTIN - TIME: 8:44 a.m. sinus rhythm at 56. [facility] /[id number]
== END ==
LOC: DL.SDS 07:04
PROVIDERS: ATTEND Surgery
DX: K64.8 Other hemorrhoids (principal); K62.89 Other specified diseases of anus and rectum; G89.29 Other chronic pain; R21 Rash and other nonspecific skin eruption; D75.1 Secondary polycythemia; R06.02 Shortness of breath; R07.9 Chest pain, unspecified; Z01.812 Encounter for preprocedural laboratory examination; Z20.822 Contact with and (suspected) exposure to COVID-19; Z95.818 Presence of other cardiac implants and grafts; Z79.899 Other long term (current) drug therapy; Z98.890 Other specified postprocedural states
CPT/HCPCS: 00902; 46600; 93005; J2250; J2405; J2704; J3010; J7120; U0002

== ENCOUNTER 2020-05-07 08:16 | Day surgery (SDC) | payer MEDICARE, OTHER ==
[~2020-05-07 08:16] MED LIST changes: +Benzocaine/Docusate Sodium 20-283 MG/5 ML Enema RECTAL ONE; +Dextrose 5%-0.45% NaCl 1,000 ML IV SCH; -Lidocaine 1% with EPINEPHrine 1:100,000 20 ML MDV INJECT ONE; -Lidocaine 1% with EPINEPHrine 1:100,000 20 ML MDV ONE; -Midazolam 1 MG/ML 2 ML SDV IV ONE; +Midazolam 1 MG/ML 2 ML SDV ONE; -Ondansetron 4 MG/2 ML SDV IV ONE; -Propofol 200 MG/20 ML SDV IV ONE; -fentaNYL 100 MCG/2 ML SDV IV ONE; +fentaNYL 100 MCG/2 ML SDV ONE
[2020-05-07] MEDS ORDERED: fentaNYL 100 MCG/2 ML SDV IV ONE ×2 (08:17→09:28)
[2020-05-07] MEDS ORDERED: Midazolam 1 MG/ML 2 ML SDV IV ONE ×3 (08:17→09:27)
--- NOTE | 2020-05-07 12:04 | OR ---
DATE: 05/07/2020 PREOPERATIVE DIAGNOSIS: Rectal pain and complaints of passing rectal stones. POSTOPERATIVE DIAGNOSIS: Rectal pain and complaints of passing rectal stones. PROCEDURE: Total colonoscopy. ANESTHESIA: Conscious sedation with IV Versed and fentanyl. SPECIMEN: None. OPERATIVE FINDINGS: Significant sigmoid diverticulosis. He has few small internal hemorrhoids of no consequence, and there is no evidence of fistula or fissure. Rectal examination is normal. Of note, he does have a lot of small little stool balls that I think are secondary to the diverticulosis and that is what he is feeling when he passes stool. PROCEDURE IN DETAIL: After adequate preparation, a colonoscope was inserted into the rectum. I especially was looking for anal fissure or fistula, none were found. He does have some small internal hemorrhoids, but these should be of no consequence. Retained within the rectum and most of the scattered throughout the colon are little hard stool ball and there are some that are pictured within the diverticula that were present. No other abnormalities were noted. The scope was passed all the way to the cecum and confirmation of the cecum was made by visualization of the ileocecal valve. The bowel prep was adequate. On withdrawal of the scope, no other abnormalities were noted. [facility] /[id number]
== END 2020-05-07 10:40 | disposition home or self-care (01) ==
LOC: DL.SDS 08:16
PROVIDERS: ATTEND Surgery
DX: K64.8 Other hemorrhoids (principal); K57.30 Diverticulosis of large intestine without perforation or abscess without bleeding; K56.41 Fecal impaction; G89.29 Other chronic pain; Z79.899 Other long term (current) drug therapy
CPT/HCPCS: 45378; J2250; J3010; J7042

== ENCOUNTER 2020-06-28 08:02 | Emergency (ER) | payer MEDICARE, OTHER ==
--- NOTE | 2020-06-28 08:17 | EDM.PDOC ---
ED HPI GENERAL MEDICAL PROBLEM - General Chief Complaint: Respiratory Problem Stated Complaint: COUGH SNEEZING CHEST HURTS Time Seen by Provider: 06/28/20 08:10 Source of Information: Reports: Patient, Old Records, RN, RN Notes Reviewed History Limitations: Reports: No Limitations - History of Present Illness INITIAL COMMENTS - FREE TEXT/NARRATIVE: Pt presents to ER from home by POV with c/o cough, sneezing, and congestion x5 days. He is worried about COVID, but has no confirmed exposures. Denies fever. Admits to chills and headache. Duration: Day(s): (5), Constant Location: Reports: Chest Quality: Reports: Ache Severity: Moderate Improves with: Reports: None Worsens with: Reports: Other (Coughing) Associated Symptoms: Reports: No Other Symptoms - Related Data Allergies Allergy/AdvReac Type Severity Reaction Status Date / Time No Known Allergies Allergy Verified 06/28/20 08:15 Home Meds: Home Meds Chlorthalidone 25 mg PO DAILY 01/23/14 [History] Losartan [Cozaar] 100 mg PO DAILY 01/23/14 [History] Metoprolol Succinate [Toprol XL] 50 mg PO BEDTIME 01/23/14 [History] Nitroglycerin [Nitrostat] 0.4 mg SL .Q5MIN PRN 01/23/14 [History] Potassium Chloride [Klor-Con M20] 20 meq PO BID 01/23/14 [History] amLODIPine [Norvasc] 5 mg PO DAILY 01/23/14 [History] Albuterol [Proventil] 0.5 ml INH Q4HR PRN 11/06/17 [History] Fluticasone Propion/Salmeterol [Advair 250-50 Diskus] 1 puff INH BID 11/06/17 [History] Goserelin [Zoladex] 10.8 mg SUBCUT .[id number] 11/06/17 [History] Isosorbide Mononitrate [Isosorbide Mononitrate ER] 60 mg PO BID 05/03/20 [History] Aspirin 162 mg PO DAILY 05/05/20 [History] Past Medical History HEENT History: Reports: Macular Degeneration Cardiovascular History: Reports: Hypertension, Stents Respiratory History: Reports: COPD Gastrointestinal History: Reports: None Genitourinary History: Reports: None Musculoskeletal History: Reports: None Neurological History: Reports: None Psychiatric History: Reports: None Endocrine/Metabolic History: Reports: Obesity/BMI 30+ Hematologic History: Reports: Hemochromatosis, Other (See Below) Other Hematologic History: makes too much blood Immunologic History: Reports: None Oncologic (Cancer) History: Reports: Prostate, Other (See Below) Other Oncologic History: some kind of skin cancer Dermatologic History: Reports: None - Infectious Disease History Infectious Disease History: Reports: Chicken Pox, Measles, Mumps - Past Surgical History Head Surgeries/Procedures: Reports: None HEENT Surgical History: Reports: Adenoidectomy, Tonsillectomy Cardiovascular Surgical History: Reports: Coronary Artery Stent Respiratory Surgical History: Reports: None GI Surgical History: Reports: Appendectomy, Cholecystectomy, Colonoscopy, Other (See Below) Other GI Surgeries/Procedures: exam of rectum under anesthesia Male Surgical History: Reports: None Endocrine Surgical History: Reports: None Neurological Surgical History: Reports: None Musculoskeletal Surgical History: Reports: Other (See Below) Other Musculoskeletal Surgeries/Procedures:: fx collarbone Dermatological Surgical History: Reports: None Social & Family History - Family History Family Medical History: No Pertinent Family History - Caffeine Use Caffeine Use: Reports: None - Living Situation & Occupation Living situation: Reports: , with Spouse 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 ED EXAM, GENERAL - Physical Exam Exam: See Below Exam Limited By: No Limitations General Appearance: Alert, WD/WN, No Apparent Distress Eye Exam: Bilateral Eye: Normal Inspection Ears: Normal External Exam, Normal Canal, Hearing Grossly Normal, Normal TMs Nose: No Blood, Other (Moderate congestion) Throat/Mouth: Normal Inspection, Normal Lips, Normal Teeth, Normal Gums, Normal Oropharynx, Normal Voice, No Airway Compromise Head: Atraumatic, Normocephalic Neck: Normal Inspection, Supple, Non-Tender, Full Range of Motion Respiratory/Chest: No Respiratory Distress, No Accessory Muscle Use, Chest Non- Tender, Wheezing, Other (Occ. dry cough). No: Crackles, Rales, Rhonchi Cardiovascular: Regular Rate, Rhythm, No Edema Extremities: Normal Inspection, No Pedal Edema Neurological: Alert, Oriented, CN II-XII Intact, Normal Cognition, No Motor/Sensory Deficits Psychiatric: Normal Affect, Normal Mood Skin Exam: Warm, Dry, Intact, Normal Color, No Rash Course - Vital Signs Last Recorded V/S: Last Vital Signs Temp 97.6 F 06/28/20 08:16 Pulse 66 06/28/20 08:16 Resp 18 06/28/20 08:16 BP 152/86 H 06/28/20 08:16 Pulse Ox 100 06/28/20 08:16 - Orders/Labs/Meds Labs: Laboratory Tests 06/28/20 Range/Units 08:11 Influenza Type A RNA Negative (NEGATIVE) Influenza Type B RNA Negative (NEGATIVE) SARS-CoV-2 RNA (ROSALIE) Negative (NEGATIVE) Departure - Departure Time of Disposition: 09:13 Disposition: Home, Self-Care 01 Condition: Good Clinical Impression: Bronchitis, Acute exacerbation of chronic obstructive pulmonary disease (COPD) - Discharge Information *PRESCRIPTION DRUG MONITORING PROGRAM REVIEWED*: Not Applicable *COPY OF PRESCRIPTION DRUG MONITORING REPORT IN PATIENT ZACH: Not Applicable Instructions: Acute Bronchitis, Adult, Chronic Obstructive Pulmonary Disease Exacerbation, [id number] Forms: ED Department Discharge Additional Instructions: Rx: Levaquin 500mg Rx: Prednisone 20mg Rx: DuoNeb nebulizer solution. Follow up in clinic if not improving in one week. Sepsis Event Note (ED) - Focused Exam Vital Signs: Vital Signs Temp Pulse Resp BP Pulse Ox 06/28/20 08:16 97.6 F 66 18 152/86 H 100
[2020-06-28 08:56] LABS: CORONAVIRUS COVID-19 NAA NEGATIVE (NEGATIVE)
== END 2020-06-28 09:18 | disposition home or self-care (01) ==
LOC: DL.ED 08:02
DX: J44.1 Chronic obstructive pulmonary disease with (acute) exacerbation (principal); I10 Essential (primary) hypertension; E66.9 Obesity, unspecified; Z68.33 Body mass index [BMI] 33.0-33.9, adult; Z20.822 Contact with and (suspected) exposure to COVID-19; Z79.82 Long term (current) use of aspirin; Z79.899 Other long term (current) drug therapy
CPT/HCPCS: 0240U; 99283

== ENCOUNTER 2020-12-07 08:24 | Emergency (ER) | payer MEDICARE, OTHER ==
--- NOTE | 2020-12-07 09:30 | EDM.PDOC ---
ED HPI GENERAL MEDICAL PROBLEM - General Chief Complaint: General Stated Complaint: COUGH FOR 3 WKS / NEG COVID TEST Time Seen by Provider: 12/07/20 08:45 Source of Information: Reports: Patient, Old Records, RN, RN Notes Reviewed History Limitations: Reports: No Limitations - History of Present Illness INITIAL COMMENTS - FREE TEXT/NARRATIVE: Nadya is an 80 y/o male who presents to the ED via personal vehicle with complaints of persistent dry cough. The patient reports his cough began about three weeks ago and has progressively worsened in that time. He states he has been evaluated by his PCP and was started on "...four different antibiotics" however he is unsure what they were. He has been using OTC cough medicine and albuterol nebulizer BID which he states helps for awhile. He denies fever, shaking chills, headache, vision changes, sore throat, wheezing, chest pain, palpitations, or shortness of breath. He denies history of tobacco or recreational drug use. The patient states he is fully vaccinated for COVID; he has been tested for COVID. - Related Data Allergies Allergy/AdvReac Type Severity Reaction Status Date / Time No Known Allergies Allergy Verified 12/07/20 08:35 Home Meds: Home Meds Chlorthalidone 25 mg PO DAILY 01/23/14 [History] Losartan [Cozaar] 100 mg PO DAILY 01/23/14 [History] Metoprolol Succinate [Toprol XL] 50 mg PO BEDTIME 01/23/14 [History] Nitroglycerin [Nitrostat] 0.4 mg SL .Q5MIN PRN 01/23/14 [History] Potassium Chloride [Klor-Con M20] 20 meq PO BID 01/23/14 [History] amLODIPine [Norvasc] 5 mg PO DAILY 01/23/14 [History] Albuterol [Proventil] 0.5 ml INH Q4HR PRN 11/06/17 [History] Fluticasone Propion/Salmeterol [Advair 250-50 Diskus] 1 puff INH BID 11/06/17 [History] Goserelin [Zoladex] 10.8 mg SUBCUT .[id number] 11/06/17 [History] Isosorbide Mononitrate [Isosorbide Mononitrate ER] 60 mg PO BID 05/03/20 [History] Aspirin 162 mg PO DAILY 05/05/20 [History] Past Medical History HEENT History: Reports: Macular Degeneration Cardiovascular History: Reports: Hypertension, Stents Respiratory History: Reports: COPD Gastrointestinal History: Reports: None Genitourinary History: Reports: None Musculoskeletal History: Reports: None Neurological History: Reports: None Psychiatric History: Reports: None Endocrine/Metabolic History: Reports: Obesity/BMI 30+ Hematologic History: Reports: Hemochromatosis, Other (See Below) Other Hematologic History: makes too much blood Immunologic History: Reports: None Oncologic (Cancer) History: Reports: Prostate Other Oncologic History: some kind of skin cancer Dermatologic History: Reports: None - Infectious Disease History Infectious Disease History: Reports: Chicken Pox, Measles, Mumps - Past Surgical History Head Surgeries/Procedures: Reports: None HEENT Surgical History: Reports: Adenoidectomy, Tonsillectomy Cardiovascular Surgical History: Reports: Coronary Artery Stent Respiratory Surgical History: Reports: None GI Surgical History: Reports: Appendectomy, Cholecystectomy, Colonoscopy Male Surgical History: Reports: None Endocrine Surgical History: Reports: None Neurological Surgical History: Reports: None Musculoskeletal Surgical History: Reports: Other (See Below) Other Musculoskeletal Surgeries/Procedures:: fx collarbone Dermatological Surgical History: Reports: None Social & Family History - Family History Family Medical History: No Pertinent Family History - Tobacco Use Tobacco Use Status *Q: Unknown Ever Used Tobacco Second Hand Smoke Exposure: No - Caffeine Use Caffeine Use: Reports: Coffee - Recreational Drug Use Recreational Drug Use: No - Living Situation & Occupation Living situation: Reports: , with Spouse 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 ED EXAM, GENERAL - Physical Exam Exam: See Below Exam Limited By: No Limitations General Appearance: Alert, No Apparent Distress Eye Exam: Bilateral Eye: EOMI, Normal Inspection, PERRL (3mm) Ears: Normal External Exam, Normal Canal, Hearing Grossly Normal, Normal TMs Ear Exam: Bilateral Ear: Auricle Normal, Canal Normal, TM normal Nose: Normal Inspection, Normal Mucosa, No Blood Throat/Mouth: Normal Inspection, Normal Oropharynx, Normal Voice, No Airway Compromise. No: Inflammation Head: Atraumatic, Normocephalic Neck: Normal Inspection, Supple, Non-Tender, Full Range of Motion, Lymphadenopathy (L) (Anterior cervical chain). No: Lymphadenopathy (R) Respiratory/Chest: No Respiratory Distress, Lungs Clear, Normal Breath Sounds, Chest Non-Tender, Other (Dry cough). No: Crackles, Rales, Rhonchi, Wheezing, Stridor, Retractions Cardiovascular: Normal Peripheral Pulses, Regular Rate, Rhythm, No Gallop, No M urmur, No Rub Peripheral Pulses: 2+: Radial (L), Radial (R) GI/Abdominal: Normal Bowel Sounds, Soft, Non-Tender (Male) Exam: Deferred Rectal (Males) Exam: Deferred Extremities: Normal Inspection, Normal Range of Motion Neurological: Alert, Oriented, CN II-XII Intact, Normal Cognition, Normal Gait, No Motor/Sensory Deficits Psychiatric: Normal Affect, Normal Mood Skin Exam: Warm, Dry, Intact, Normal Color, No Rash. No: Cyanosis, Jaundice, Mottled, Pallor Lymphatic: Adenopathy (See above) Course - Vital Signs Last Recorded V/S: Last Vital Signs Temp 97.7 F 12/07/20 08:36 Pulse 84 12/07/20 08:36 Resp 18 12/07/20 08:36 BP 127/105 H 12/07/20 08:36 Pulse Ox 97 12/07/20 08:36 - Radiology Interpretation Free Text/Narrative:: [facility] Final Radiology Report Call: [phone] assistance Online chat: [email or web address] Name: NADYA VALENTIN Age: 80Years M Date: 12/07/2020 SSN: -- : [id number] Study: CR CHEST 1V FRONTAL Requesting Physician: Pratima Monroy Images: 1 Addl Studies: Provided Clinical History: Persistent cough; Shortness of breath Contrast: Contrast Medium: Contrast Amount: Contrast Method: CONFIDENTIALITY STATEMENT This report is intended only for use by the referring physician, and only in accordance with law. If you received this in error, call [phone]. Page 1 of 1 PROCEDURE INFORMATION: Exam: XR Chest Exam date and time: 12/07/2020 9:06 AM Age: 80 years old Clinical indication: Other: Persistent cough; Shortness of breath TECHNIQUE: Imaging protocol: XR of the chest. Views: 1 view. COMPARISON: No relevant prior studies available. FINDINGS: Lungs: Unremarkable. No consolidation. Pleural spaces: Unremarkable. No pleural effusion. No pneumothorax. Heart/Mediastinum: Unremarkable. No cardiomegaly. Vasculature: The aorta is tortuous. Bones/joints: Degenerative changes involve the spine and shoulders. A chronic right clavicular fracture is noted. IMPRESSION: No evidence for acute pulmonary disease. Thank you for allowing us to participate in the care of your patient. Dictated and Authenticated by: Phillip Buenrostro MD 12/07/2020 9:42 AM Central Time ([place] & [place]) - Re-Assessments/Exams Free Text/Narrative Re-Assessment/Exam: 12/07/20 CXR obtained. Patient adamantly refuses COVID testing, stating he received one at his PCP appointment and hasn't been out of the house since. Discussed testing indication, including true negatives within 10 days of symptoms. Findings of examination and imaging reviewed with patient. Will treat with Tessalon Perles and prednisone burst. Supportive cares for cough and COPD exacerbation reviewed. Red flag signs and symptoms which would warrant reevaluation discussed. Patient instructed to follow up with his PCP regarding today's visit. Patient verbalized understanding and agreement with the plan of care. Departure - Departure Time of Disposition: 10:02 Disposition: Home, Self-Care 01 Condition: Fair Clinical Impression: Persistent cough for 3 weeks or longer, Acute exacerbation of chronic obstructive pulmonary disease (COPD) - Discharge Information *PRESCRIPTION DRUG MONITORING PROGRAM REVIEWED*: Not Applicable *COPY OF PRESCRIPTION DRUG MONITORING REPORT IN PATIENT ZACH: Not Applicable Instructions: Chronic Obstructive Pulmonary Disease, Cough, Adult Forms: ED Department Discharge Additional Instructions: Rx: prednisone Rx: Tessalon Perles 1.) Start your steroid today and finish it, even as symptoms improve. 2.) Follow up with your primary care provider in 3-5 days regarding today's visit. 3.) You may try hot steamy shower to help with cough. 4.) You may try increased nebulizers to help with shortness of breath. 5.) Follow up with your primary care provider sooner, or return to the emergency department, with any worsening symptoms, fever, shaking chills, or chest pain. Sepsis Event Note (ED) - Evaluation Sepsis Screening Result: No Definite Risk - Focused Exam Vital Signs: Vital Signs Temp Pulse Resp BP Pulse Ox 12/07/20 08:36 97.7 F 84 18 127/105 H 97
--- NOTE | 2020-12-07 09:42 | CR ---
PROCEDURE INFORMATION: Exam: XR Chest Exam date and time: 12/07/2020 9:06 AM Age: 80 years old Clinical indication: Other: Persistent cough; Shortness of breath TECHNIQUE: Imaging protocol: XR of the chest. Views: 1 view. COMPARISON: No relevant prior studies available. FINDINGS: Lungs: Unremarkable. No consolidation. Pleural spaces: Unremarkable. No pleural effusion. No pneumothorax. Heart/Mediastinum: Unremarkable. No cardiomegaly. Vasculature: The aorta is tortuous. Bones/joints: Degenerative changes involve the spine and shoulders. A chronic right clavicular fracture is noted. IMPRESSION: No evidence for acute pulmonary disease.
== END 2020-12-07 10:16 | disposition home or self-care (01) ==
LOC: DL.ED 08:24
DX: J44.1 Chronic obstructive pulmonary disease with (acute) exacerbation (principal); I10 Essential (primary) hypertension; E66.9 Obesity, unspecified; Z68.32 Body mass index [BMI] 32.0-32.9, adult; Z79.82 Long term (current) use of aspirin; Z79.899 Other long term (current) drug therapy
CPT/HCPCS: 71045; 99283-25